=== PATIENT | male | born 1950 | race African-American/Black ===

== ENCOUNTER 2020-04-14 17:44 | Inpatient (IN) | payer MEDICARE, MEDICAID ==
[~2020-04-14] VITALS: Ht 195.6 cm; Wt 86.3 kg
[2020-04-14] MEDS ORDERED: LORAZEPAM 2MG/ML CPJ IV ONE (18:15)
[2020-04-14] MEDS ORDERED: SODIUM CHLORIDE 0.9% 1,000 ML IV ONE (18:15)
[2020-04-14 18:36] LABS: BASOPHILS % 0.4 % (0.0-2.0); EOSINOPHILS % 1.5 % (0.0-5.0); HEMATOCRIT. 42.3 % (42.0-52.0); HEMOGLOBIN. 14.3 g/dL (14.0-18.0); LYMPHOCYTES % 24.7 % (20.0-50.0); MEAN CORPUSCULAR HEMOGLOBIN 34.4 pg (28.0-32.0); MEAN CORPUSCULAR VOLUME 101.8 fL (80.0-94.0); MEAN PLATELET VOLUME 9.5 fl (7.4-10.4); NEUTROPHILS % 63.4 % (40.0-76.0); PLATELET 139 x1000/uL (130-400); RED BLOOD CELL COUNT 4.16 mill/uL (4.7-6.1); RED CELL DISTRIBUTION WIDTH 15.1 % (11.6-14.6)
[2020-04-14 18:43] LABS: CHLORIDE 106 mEq/L (98-107)
[2020-04-14 18:47] LABS: ETHANOL BLOOD < 10 mg/dL; INR 1.1; PARTIAL THROMBOPLASTIN TIME 29.1 sec (23.4-31.0); PROTHROMBIN TIME 11.3 sec (9.6-11.0)
[2020-04-14] MEDS ORDERED: ASPIRIN 300MG SUPP PR ONE (20:00)
[2020-04-14] MEDS ORDERED: ONDANSETRON HCL 4MG/2ML INJ IV PRN (20:45)
[2020-04-14] MEDS ORDERED: NA PHOS,M-B/NA PHOS,DI-BA ENEMA 118ML PR PRN (20:45)
[2020-04-14] MEDS ORDERED: CLONIDINE 0.1MG TABLET PO PRN (20:45)
[2020-04-14] MEDS ORDERED: DOCUSATE SODIUM 100MG CAPSULE PO PRN (20:45)
[2020-04-14] MEDS ORDERED: KETOROLAC 15MG/ML VIAL IV PRN (20:45)
[2020-04-14] MEDS ORDERED: ACETAMINOPHEN 325MG TABLET PO PRN (20:45)
[2020-04-14] MEDS ORDERED: GUAIFENESIN 200MG/10ML SUGAR FREE UDC PO PRN (20:45)
[2020-04-14] MEDS ORDERED: IPRATROPIUM/ALBUTEROL 0.5-3(2.5)MG/3ML NEB ORI PRN (20:45)
[2020-04-14] MEDS ORDERED: HYDRALAZINE 20MG/ML VIAL IV ONE (20:45)
[2020-04-14] MEDS ORDERED: NITROGLYCERIN 0.4MG TABLET SL SL PRN (20:45)
[2020-04-14] MEDS ORDERED: MAGNESIUM/ALUMINUM HYDROXIDE/SIMETHICONE 30ML UDC PO PRN (20:45)
[2020-04-14 21:09] LABS: T4 FREE 1.13 ng/dL (0.76-1.46)
[2020-04-14 21:21] LABS: FOLIC ACID (FOLATE) SERUM 17.8 ng/mL (>5.38)
[2020-04-14] MEDS: ASPIRIN 81MG TABLET PO ONE ×2 (21:55→22:11)
[2020-04-14 22:46] VITALS: BP 121/55
[2020-04-14] MEDS ORDERED: KCL 20MEQ/100ML PREMIX 100 ML IV NR (23:00)
[2020-04-14 23:41] LABS: CREATINE KINASE 188 IU/L (39-308); CREATINE KINASE MB FRACTION < 1.0 ng/mL (0.5-3.6)
[2020-04-15] VITALS (7 sets, daily range): BP systolic 103–145; BP diastolic 63–76
[2020-04-15] MEDS: CARBIDOPA/LEVODOPA 25/100MG TABLET PO SCH ×5 (00:27→21:27)
[2020-04-15] MEDS: ASCORBIC ACID 500 MG TABLET PO SCH ×3 (00:28→20:07)
[2020-04-15] MEDS: FAMOTIDINE 20MG TABLET PO SCH ×3 (00:28→20:07)
[2020-04-15] MEDS: CEFTRIAXONE 1,000 MG in DEXTROSE 5% WATER 50 ML IV SCH ×2 (00:55→20:07)
[2020-04-15] MEDS: ZOLPIDEM TARTRATE 5MG TABLET PO PRN (00:57)
[2020-04-15] MEDS: ACETAMINOPHEN 325MG TABLET PO PRN ×2 (00:58→13:45)
[2020-04-15] MEDS ORDERED: PNEUMOCOCCAL 23-VAL P-SAC VAC 0.5 ML IM ONE (08:00)
[2020-04-15] MEDS: ZINC SULFATE 220 MG ( 50 ) CAPSULE PO SCH (08:21)
[2020-04-15] MEDS: CLOPIDOGREL 75MG TABLET PO SCH (08:21)
[2020-04-15] MEDS: ENOXAPARIN 30MG/0.3ML SYR SUBCUT SCH ×2 (08:22→20:07)
[2020-04-15] MEDS ORDERED: CEFTRIAXONE 1 G PREMIX 50 ML IV SCH (09:00)
[2020-04-15 10:26] LABS: CREATINE KINASE 296 IU/L (39-308)
[2020-04-16] VITALS: BP 127/70
[2020-04-16] MEDS: ZOLPIDEM TARTRATE 5MG TABLET PO PRN (01:15)
[2020-04-16 04:00] VITALS: BP 135/75
[2020-04-16] MEDS: CARBIDOPA/LEVODOPA 25/100MG TABLET PO SCH ×2 (05:31→15:02)
[2020-04-16 08:00] VITALS: BP 139/79
[2020-04-16 08:31] LABS: BASOPHILS % 0.8 % (0.0-2.0); EOSINOPHILS % 2.4 % (0.0-5.0); HEMATOCRIT. 43.6 % (42.0-52.0); HEMOGLOBIN. 14.6 g/dL (14.0-18.0); LYMPHOCYTES % 37.3 % (20.0-50.0); MEAN CORPUSCULAR HEMOGLOBIN 34.4 pg (28.0-32.0); MEAN CORPUSCULAR VOLUME 102.6 fL (80.0-94.0); MEAN PLATELET VOLUME 9.5 fl (7.4-10.4); MONOCYTES % 10.6 % (2.0-8.0); NEUTROPHILS % 48.9 % (40.0-76.0); PLATELET 150 x1000/uL (130-400); RED BLOOD CELL COUNT 4.25 mill/uL (4.7-6.1)
[2020-04-16 08:39] LABS: CHLORIDE 108 mEq/L (98-107)
[2020-04-16 08:47] LABS: PHOSPHORUS 2.6 mg/dL (2.5-4.9)
[2020-04-16] MEDS ORDERED: ENOXAPARIN 40MG/0.4ML SYR SUBCUT SCH (09:00)
[2020-04-16] MEDS: ZINC SULFATE 220 MG ( 50 ) CAPSULE PO SCH (09:17)
[2020-04-16] MEDS: ASCORBIC ACID 500 MG TABLET PO SCH (09:17)
[2020-04-16] MEDS: FAMOTIDINE 20MG TABLET PO SCH (09:18)
[2020-04-16] MEDS: CLOPIDOGREL 75MG TABLET PO SCH (09:18)
[2020-04-16 12:00] VITALS: BP 146/71
[2020-04-16 16:00] VITALS: BP 136/85
[2020-04-16 17:27] VITALS: BP 136/85
== END 2020-04-16 20:25 | disposition short-term general hospital (02) | DRG 52 ==
LOC: ER 17:44 → EDBEDREQTM 20:35 → EDBEDREQ 20:35 → SUPCPDRO 20:38 → ENRESERV 21:29 → 5WST 22:33 → EDBD 22:33
PROVIDERS: ADMIT Internal Medicine; ATTEND Internal Medicine
DX: G92 Toxic encephalopathy (principal); J98.11 Atelectasis; E78.00 Pure hypercholesterolemia, unspecified; E83.51 Hypocalcemia; E87.6 Hypokalemia; G20 Parkinson's disease; I10 Essential (primary) hypertension; Z79.899 Other long term (current) drug therapy
CPT/HCPCS: 36415; 70551; 71045; 80053; 80061; 80305; 80320; 82550; 82553; 82607; 82746; 82962; 83036; 83540; 83550; 83735; 83880; 84100; 84439; 84443; 84484; 85025; 90732; 93005; 93306; 93880; 93970; 96374; 97162; 97166; 99285; J0360; J0696; J1650; J1885; J2060; J3480; J7030; J7060; G0480